=== PATIENT | female | born 1990 | race African-American/Black ===

== ENCOUNTER 2017-08-03 11:43 | Emergency (ER) | payer MEDICAID, OTHER ==
[~2017-08-03] VITALS: Wt 99.2 kg
[2017-08-03] MEDS ORDERED: EPIN0.3P4 INJ (12:25)
[2017-08-03] MEDS ORDERED: BEN25 PO (12:25)
[2017-08-03] MEDS ORDERED: PRED20TA PO (12:25)
[2017-08-03] MEDS ORDERED: FAMO-96 PO (12:27)
[2017-08-03] MEDS ORDERED: FAMOTIDINE 20 MG TAB PO ONE (12:30)
[2017-08-03] MEDS ORDERED: DIPHENHYDRAMINE 25 MG CAP PO ONE (12:30)
[2017-08-03] MEDS ORDERED: predniSONE 20 MG TAB PO ONE (12:30)
--- NOTE | 2017-08-03 12:43 | ERD ---
ER Documentation Chief Complaint Chief Complaint allergic reaction to ashley on Sat., c/o sob, airway intact, speak in phrs HPI 27 year old female comes in with symptoms of an allergic reaction after being exposed to Ashley, she works at [employer]. Patient states that she was preparing a ahsley shot, and had inhaled the scent causing her to have a facial rash, swelling to her eyes. She has been taking Benadryl on and off for the last 2 days, feels like she has been doing better. She has not had any trouble swallowing, voice changes, lip, or tongue swelling. ROS All systems reviewed and are negative except as per history of present illness. Medications Home Meds Active Scripts Famotidine* (Pepcid*) 20 Mg Tablet, 20 MG PO BID for 4 Days, TAB Prov:JOAN DICKINSON PA-C 08/03/17 Epinephrine (Epipen 2-Dale) 0.3 Mg/0.3 Ml Pen.injctr, 1 EA INJ ONCE Y for ALLERGIC REACTION, #1 EA Prov:JOAN DICKINSON PA-C 08/03/17 Diphenhydramine Hcl* (Benadryl*) 25 Mg Cap, 25 MG PO Q6, #30 CAP Prov:JOAN DICKINSON PA-C 08/03/17 Prednisone* (Prednisone*) 20 Mg Tab, 40 MG PO DAILY for 4 Days, TAB Prov:JOAN DICKINSON PA-C 08/03/17 Allergies Allergies: Coded Allergies: ashley (Verified Allergy, Unknown, 08/03/17) PMhx/Soc Medical and Surgical Hx: pt denies Medical Hx History of Surgery: Yes (D&C) Hx Alcohol Use: No Hx Substance Use: No Hx Tobacco Use: No Smoking Status: Never smoker Physical Exam Vitals Vital Signs Date Time Temp Pulse Resp B/P Pulse Ox O2 Delivery O2 Flow Rate FiO2 08/03/17 11:46 98.8 70 20 130/78 98 Physical Exam General: Well-developed, well-nourished. The patient appears in no acute distress. HEENT: Head is normocephalic, atraumatic. No scleral icterus. Oropharynx is clear, there is no angioedema. Neck: Supple. Nontender. Lungs: Clear to auscultation. Normal air movement. Heart: Regular rate and rhythm. S1 and S2 are normal. No murmurs, gallops, or rubs. Abdomen: Soft, nontender, nondistended. Bowel sounds are normoactive. Extremities: No clubbing or cyanosis. Normal pulses. Moving extremities x 4. No weakness. Neurologic: Alert and oriented 3. No focal deficits. Skin: Normal turgor. No rash or lesions. Results 24 hrs Current Medications Medications (Trade) Dose Ordered Sig/Bee Route PRN Reason Start Time Stop Time Status Last Admin Dose Admin Prednisone (Prednisone) 40 mg ONCE ONCE PO 08/03/17 12:30 08/03/17 12:31 DC 08/03/17 12:22 Diphenhydramine HCl (Benadryl) 25 mg ONCE ONCE PO 08/03/17 12:30 08/03/17 12:31 DC 08/03/17 12:23 Famotidine (Pepcid) 20 mg ONCE ONCE PO 08/03/17 12:30 08/03/17 12:31 DC 08/03/17 12:22 Procedures/MDM Patient's allergic symptoms have stabilized while they have been evaluated in the department without evidence of persistent systemic reaction. Patient is healthy and capable of treating and responding to rebound reactions. Patient appropriate for outpatient allergy work up and treatment. Departure Diagnosis: Primary Impression: Allergic reaction Condition: Good Patient Instructions: Allergic Reaction, Other (General) JOAN DICKINSON PA-C Aug 03, 2017 12:43
== END 2017-08-03 12:35 | disposition home or self-care (01) ==
LOC: FTE 11:43
DX: R21 Rash and other nonspecific skin eruption (principal)
CPT/HCPCS: J7512; Z7502; Z7610; 99283

== ENCOUNTER 2017-12-26 07:24 | Emergency (ER) | END 2017-12-26 08:56 | disposition home or self-care (01) ==

== ENCOUNTER 2018-03-28 03:29 | Emergency (ER) | END 2018-03-28 05:31 | disposition home or self-care (01) ==

== ENCOUNTER 2018-04-26 15:31 | Emergency (ER) | END 2018-04-26 19:32 | disposition left against medical advice (07) ==

== ENCOUNTER 2018-06-12 20:25 | Emergency (ER) | END 2018-06-12 22:15 | disposition home or self-care (01) ==